=== PATIENT | female | born 1945 | race Caucasian/White ===

== ENCOUNTER 2018-01-10 12:20 | Inpatient (IN) | payer MEDICARE, MEDICAID ==
[~2018-01-10] VITALS: Ht 149.9 cm; Wt 52.6 kg
[2018-01-10] MEDS ORDERED: HYDR-3326 PO (12:47)
[2018-01-10] MEDS ORDERED: DOCU100C36 PO (12:47)
[2018-01-10] MEDS ORDERED: CALC-555 PO (12:47)
[2018-01-10] MEDS ORDERED: OLAN2.5T3 PO (12:47)
[2018-01-10] MEDS ORDERED: ACET-2154 PO (12:47)
[2018-01-10] MEDS ORDERED: MAGN400O6 PO (12:47)
[2018-01-10] MEDS ORDERED: MULT-213 PO (12:47)
[2018-01-10] MEDS ORDERED: ONDA4TAB5 PO (12:47)
[2018-01-10] MEDS ORDERED: MIRT15TA PO (12:47)
[2018-01-10] MEDS ORDERED: LORA-258 PO (12:47)
[2018-01-10] MEDS ORDERED: ATOR20TA PO (12:47)
[2018-01-10] MEDS ORDERED: POLY17PO4 PO (12:47)
[2018-01-10] MEDS ORDERED: MELA3TAB PO (12:47)
[2018-01-10] MEDS ORDERED: OLAN7.5T3 PO (12:47)
[2018-01-10] MEDS ORDERED: FERR325T28 PO (12:47)
[2018-01-10] MEDS ORDERED: CALC500T13 PO (12:47)
[2018-01-10] MEDS ORDERED: MAG355OR18 PO (12:47)
[2018-01-10 12:57] LABS: BASOPHILS # (AUTO) 0.1 K/uL (0.0-8.0); BASOPHILS % (AUTO) 0.9 % (0.0-2.0); EOSINOPHILS # (AUTO) 0.3 K/uL (0.0-0.7); ETHANOL < 3 MG/DL (0-0); HEMATOCRIT 37.9 % (31.2-41.9); HEMOGLOBIN 12.5 g/dL (10.9-14.3); LYMPHOCYTES # (AUTO) 1.3 K/uL (20.0-40.0); LYMPHOCYTES % (AUTO) 16.9 % (20.5-51.5); MEAN CORPUSCULAR HEMOGLOBIN 22.6 uug (24.7-32.8); MEAN CORPUSCULAR HGB CONC 33 g/dL (32.3-35.6); MEAN CORPUSCULAR VOLUME 68.9 fL (75.5-95.3); MONOCYTES # (AUTO) 0.5 K/uL (2.0-10.0); MONOCYTES % (AUTO) 6.3 % (0.0-11.0); NEUTROPHILS # (AUTO) 5.6 K/uL (1.8-8.9); NEUTROPHILS % (AUTO) 71.9 % (38.5-71.5); PLATELET COUNT (AUTO) 293 K/uL (179-408); WHITE BLOOD COUNT (AUTO) 7.8 K/uL (3.8-11.8)
[2018-01-10 12:58] LABS: ALANINE AMINOTRANSFERASE 27 U/L (14-59); ALKALINE PHOSPHATASE 89 U/L (50-136); ASPARTATE AMINOTRANSFERASE 21 U/L (15-37); BILIRUBIN,DIRECT 0.1 mg/dL (0.0-0.2); BILIRUBIN,TOTAL 0.3 mg/dL (0.2-1.0); CARBON DIOXIDE 29 mmol/L (21-32); CHLORIDE 106 mmol/L (98-107); CREATININE 1.2 mg/dL (0.6-1.3); GLUCOSE 106 mg/dL (74-106); POTASSIUM 4.3 mmol/L (3.5-5.1); TOTAL PROTEIN, SERUM 7.6 g/dL (6.4-8.2); UREA NITROGEN, BLOOD 19 mg/dL (7-18)
[2018-01-10 13:02] LABS: ACETAMINOPHEN < 2.0 ug/mL (10-30)
[2018-01-10 13:15] LABS: *BILIRUBIN,URIN NEGATIVE (NEGATIVE); *BLOOD, URINE NEGATIVE (NEGATIVE); *CLARITY,URINE CLEAR (CLEAR); *COLOR,URINE YELLOW (YELLOW); *KETONES,URINE NEGATIVE (NEGATIVE); *PROTEIN,URINE NEGATIVE (NEGATIVE); *UROBILINOGEN,URINE 0.2 E.U./dl (NORMAL); LEUKOCYTE ESTERASE ,URINE NEGATIVE (NEGATIVE); NITRITE, URINE NEGATIVE (NEGATIVE); UGLUCOSE NEGATIVE (NEGATIVE)
[2018-01-10 13:25] LABS: *AMPHETAMINE, URINE NEGATIVE (NEGATIVE); *BARBITURATE, URINE NEGATIVE (NEGATIVE); *CANNABINOID, URINE NEGATIVE (NEGATIVE); *COCCAINE, URINE NEGATIVE (NEGATIVE); *OPIATE, URINE NEGATIVE (NEGATIVE); *PHENCYCLIDINE SCREEN,URINE NEGATIVE (NEGATIVE)
[2018-01-10 13:28] LABS: BACTERIA,URINE NONE SEEN /HPF (NONE SEEN); MUCUS,URINE FEW /LPF (0-FEW); RBC,URINE NONE SEEN /HPF (0-3); SQUAMOUS EPITHELIAL CELL,UR FEW /HPF (NONE SEEN); WBC,URINE 0-3 /HPF (0-3)
[2018-01-10 13:37] LABS: EOSINOPHILS % (MANUAL) 2 % (0-8); LYMPHOCYTES % (MANUAL) 18 % (20-40); MONOCYTES % (MANUAL) 4 % (2-10); NEUTROPHILS % (MANUAL) 76 % (42-75)
--- NOTE | 2018-01-10 13:51 | NUR ---
Pt resting in gurney with no s/s of distress noted. Called Pinky for psych eval, eta 1 hr.
--- NOTE | 2018-01-10 14:43 | NUR ---
Pinky here for psych eval.
--- NOTE | 2018-01-10 14:49 | NUR ---
Pt placed on 5150 hold (GD) by Mirian.
--- NOTE | 2018-01-10 15:22 | NUR ---
Pt trans to MHU, NAD noted.
[2018-01-10] MEDS ORDERED: TEMAZEPAM 7.5 MG CAPSULE PO PRN (16:00)
[2018-01-10] MEDS ORDERED: ACETAMINOPHEN 325 MG TABLET PO PRN (16:00)
[2018-01-10] MEDS ORDERED: MAGNESIUM HYDROXIDE 30 ML LIQUID UDC PO PRN (16:00)
[2018-01-10] MEDS: OLANZAPINE 2.5 MG TABLET PO SCH (16:50)
--- NOTE | 2018-01-10 18:24 | NUR ---
1530: Admitted pt on 5150 for Gravely Disabled. Per hold, pt complain of hearing voices and paranoia. Upon assessment, pt stated "the voices manifest in my brain telling me that I am bad and I will go to hell". Denies SI and HI. A/O x3, admission orders noted and carried out. Contraband search done. Oriented to room and hospital policies and procedures. Family member notified of admission. skin assessment clear.
--- NOTE | 2018-01-10 19:30 | NUR ---
Received pt in bed, awake. No complaints of pain at this time. Will continue to monitor.
[2018-01-10] MEDS: MIRTAZAPINE 15 MG TABLET PO SCH (20:08)
[2018-01-10] MEDS: OLANZAPINE 5 MG TABLET PO SCH (20:08)
[2018-01-10] MEDS: MAG HYDROX/AL HYDROX/SIMETH 30 ML LIQUID UDC PO PRN (20:16)
[2018-01-10 20:19] VITALS: BP 127/76
--- NOTE | 2018-01-10 21:10 | NUR ---
Complains of stomach upset; requests for meds. Mylanta PRN administered per MD order.
--- NOTE | 2018-01-11 06:56 | NUR ---
Awake in bed, denies any pain or discomfort at this time. Manifests a pleasant disposition upon waking up. Frequent checks done to ensure safety.
[2018-01-11 07:30] VITALS: BP 148/84
[2018-01-11] MEDS: OLANZAPINE 2.5 MG TABLET PO SCH ×2 (08:01→16:27)
[2018-01-11] MEDS ORDERED: MAGNESIUM HYDROXIDE 30 ML LIQUID UDC PO PRN (10:00)
[2018-01-11] MEDS ORDERED: MAG HYDROX/AL HYDROX/SIMETH 30 ML LIQUID UDC PO PRN (10:00)
[2018-01-11] MEDS ORDERED: CALCIUM CARBONATE 500 MG TAB.CHEW PO PRN (10:00)
[2018-01-11] MEDS ORDERED: MIRALAX 17 GM POWD.PACK PO PRN (10:00)
[2018-01-11] MEDS ORDERED: ONDANSETRON HCL 4 MG TABLET PO PRN (10:00)
[2018-01-11] MEDS ORDERED: HYDROCODONE/APAP 5-325MG TABLET PO PRN (10:00)
[2018-01-11] MEDS ORDERED: ACETAMINOPHEN 325 MG TABLET PO PRN (10:00)
[2018-01-11] MEDS: DOCUSATE SODIUM 100 MG CAPSULE PO SCH (10:41)
[2018-01-11] MEDS: CALCIUM CARB/VITAMIN D 500MG-200UNITS TABLET PO SCH (11:03)
[2018-01-11] MEDS: FERROUS SULFATE 325 MG TABEC PO SCH (11:04)
[2018-01-11] MEDS: MULTIVITAMINS,THERAPEUTIC TABLET PO SCH (11:04)
[2018-01-11] MEDS: LORAZEPAM 0.5 MG TABLET PO PRN (12:16)
[2018-01-11 15:39] VITALS: BP 116/50
[2018-01-11] MEDS: MAG HYDROX/AL HYDROX/SIMETH 30 ML LIQUID UDC PO PRN (17:53)
--- NOTE | 2018-01-11 19:35 | NUR ---
GPS: Received pt on bed.Pt shows no signs of distress. Safety and comfort provided. Will continue to monitor.
--- NOTE | 2018-01-11 19:50 | NUR ---
NOTIFY DR. SUNSHINE REGARDING PT HAVE REDNESS UNDER HER RIGHT BREAST. NO NEW ORDERS FROM THE DR. HE SAID HE WILL LOOK AT IT TOMORROW WHEN HE MAKES HIS ROUND. WILL CONTINUE TO MONITOR.
[2018-01-11] MEDS: MIRTAZAPINE 15 MG TABLET PO SCH (20:17)
[2018-01-11] MEDS: ATORVASTATIN 20 MG TABLET PO SCH (20:17)
[2018-01-11 20:18] VITALS: BP 117/67
[2018-01-11] MEDS: OLANZAPINE 5 MG TABLET PO SCH (20:23)
--- NOTE | 2018-01-12 06:50 | NUR ---
GPS: PT SLEPT 8.30 HOURS. PT SHOWS NO SIGNS OF DISTRESS. PT CALM AT THIS TIME. SAFETY AND COMFORT PROVIDED.
[2018-01-12] MEDS: FERROUS SULFATE 325 MG TABEC PO SCH (08:59)
[2018-01-12] MEDS: CALCIUM CARB/VITAMIN D 500MG-200UNITS TABLET PO SCH (08:59)
[2018-01-12] MEDS: MULTIVITAMINS,THERAPEUTIC TABLET PO SCH (08:59)
[2018-01-12] MEDS: DOCUSATE SODIUM 100 MG CAPSULE PO SCH (08:59)
[2018-01-12] MEDS: OLANZAPINE 2.5 MG TABLET PO SCH ×2 (08:59→16:02)
[2018-01-12] MEDS: MAG HYDROX/AL HYDROX/SIMETH 30 ML LIQUID UDC PO PRN (13:19)
[2018-01-12 15:23] VITALS: BP 139/78
[2018-01-12] MEDS: LORAZEPAM 0.5 MG TABLET PO PRN (15:25)
[2018-01-12] MEDS: NYSTATIN CREAM 30 GM TUBE TOP SCH ×2 (18:30→20:41)
[2018-01-12 20:39] VITALS: BP 133/89
[2018-01-12] MEDS: OLANZAPINE 5 MG TABLET PO SCH (20:40)
[2018-01-12] MEDS: MIRTAZAPINE 15 MG TABLET PO SCH (20:40)
[2018-01-12] MEDS: ATORVASTATIN 20 MG TABLET PO SCH (20:41)
[2018-01-13] MEDS: LORAZEPAM 0.5 MG TABLET PO PRN ×2 (06:12→12:50)
[2018-01-13] MEDS: MULTIVITAMINS,THERAPEUTIC TABLET PO SCH (08:06)
[2018-01-13] MEDS: FERROUS SULFATE 325 MG TABEC PO SCH (08:06)
[2018-01-13] MEDS: DOCUSATE SODIUM 100 MG CAPSULE PO SCH (08:06)
[2018-01-13] MEDS: CALCIUM CARB/VITAMIN D 500MG-200UNITS TABLET PO SCH (08:06)
[2018-01-13] MEDS: OLANZAPINE 2.5 MG TABLET PO SCH ×2 (08:06→16:01)
[2018-01-13 08:31] VITALS: BP 123/85
[2018-01-13] MEDS: NYSTATIN CREAM 30 GM TUBE TOP SCH ×2 (11:08→20:45)
--- NOTE | 2018-01-13 12:42 | NUR ---
Initial DC Plan: Patient currently resides at [facility] [[address] [place] [address]; ]. SW will follow up with facility to confirm they can accept patient back at the facility. SW will follow up with MD, patient, and patient's sister Amrita [[phone]] to discuss most appropriate discharge plans. SW will form a safe and proper discharge.
[2018-01-13] MEDS: MAG HYDROX/AL HYDROX/SIMETH 30 ML LIQUID UDC PO PRN (14:23)
[2018-01-13 16:32] VITALS: BP 130/83
[2018-01-13 20:42] VITALS: BP 104/63
[2018-01-13] MEDS: ATORVASTATIN 20 MG TABLET PO SCH (20:44)
[2018-01-13] MEDS: MIRTAZAPINE 15 MG TABLET PO SCH (20:44)
[2018-01-13] MEDS: OLANZAPINE 5 MG TABLET PO SCH (20:45)
--- NOTE | 2018-01-14 00:09 | NUR ---
RECEIVED Pt IN BED, SLEEPING BUT EASILY AROUSED, A/O X 3, COOPERATIVE AND COMPLIANT WITH MEDS AND CARE STAFF. Pt IS WITHDRAWN AND ISOLATIVE, REFUSES TO GO OUTSIDE OF HER ROOM. Pt TOOK ALL MEDS AND ASKED FOR THE LIGHTS TO BE TURNED OFF AFTERWARDS SO SHE CAN GO BACK TO SLEEP. Pt DENIES S/I, AGREES TO CFS, DENIES PAIN AND NO DISTRESS NOTED. NO AGGRESSIVE BEHAVIORS NOTED. Pt IS NOW SLEEPING COMFORTABLY. WILL MONITOR CLOSELY THROUGHOUT SHIFT.
[2018-01-14 08:00] VITALS: BP 109/49
[2018-01-14] MEDS: DOCUSATE SODIUM 100 MG CAPSULE PO SCH (08:25)
[2018-01-14] MEDS: CALCIUM CARB/VITAMIN D 500MG-200UNITS TABLET PO SCH (08:25)
[2018-01-14] MEDS: OLANZAPINE 2.5 MG TABLET PO SCH ×2 (08:25→16:05)
[2018-01-14] MEDS: FERROUS SULFATE 325 MG TABEC PO SCH (08:25)
[2018-01-14] MEDS: MULTIVITAMINS,THERAPEUTIC TABLET PO SCH (08:25)
[2018-01-14] MEDS: NYSTATIN CREAM 30 GM TUBE TOP SCH ×2 (08:27→20:25)
--- NOTE | 2018-01-14 09:31 | NUR ---
Recived patient in bed. Able to express needs. Ate her breakfast, took all her medications and provided treatment under her breast. Patient decided to stay in her bed. after breakfast. Will monitor.
[2018-01-14] MEDS: LORAZEPAM 0.5 MG TABLET PO PRN (11:40)
[2018-01-14 16:00] VITALS: BP 91/50
--- NOTE | 2018-01-14 16:38 | NUR ---
Patient only stayed in bed and in her room. Requested her ativan and zyprexa. She wanted to talk to MD regarding going home. No sign of hallucinations and/or agitation noted. Wll monitor.
[2018-01-14] MEDS: ATORVASTATIN 20 MG TABLET PO SCH (20:23)
[2018-01-14] MEDS: MIRTAZAPINE 15 MG TABLET PO SCH (20:23)
[2018-01-14] MEDS: OLANZAPINE 5 MG TABLET PO SCH (20:25)
[2018-01-14] MEDS: MAG HYDROX/AL HYDROX/SIMETH 30 ML LIQUID UDC PO PRN (20:36)
[2018-01-14 21:00] VITALS: BP 104/57
--- NOTE | 2018-01-14 23:50 | NUR ---
RECEIVED Pt IN BED, AWAKE, A/O X 3, COOPERATIVE AND COMPLIANT WITH MEDS AND CARE STAFF. Pt CONTINUES TO BE WITHDRAWN AND ISOLATIVE, BUT MORE INTERACTIVE AND GOAL ORIENTED THAN THE PREVIOUS NIGHT. Pt WENT OUTSIDE OF ROOM AND WATCHED TV IN THE DAY ROOM. Pt COMPLAINED OF HER STOMACH BEING UPSET, REQUESTED AND GIVEN MYLANTA PO PRN. AFTER TAKING MED, Pt WENT TO BED AND IS NOW SLEEPING. NO AGGRESSIVE BEHAVIORS NOTED. DENIES PAIN, DENIES S/I, AGREES TO CFS.
--- NOTE | 2018-01-15 07:00 | NUR ---
Pt SLEPT WELL THROUGHOUT THE NIGHT, STILL SLEEPING WITH NO DISTRESS NOTED. IN STABLE CONDITION.
[2018-01-15 07:30] VITALS: BP 122/75
[2018-01-15] MEDS: FERROUS SULFATE 325 MG TABEC PO SCH (08:24)
[2018-01-15] MEDS: DOCUSATE SODIUM 100 MG CAPSULE PO SCH (08:24)
[2018-01-15] MEDS: OLANZAPINE 2.5 MG TABLET PO SCH ×2 (08:25→16:15)
[2018-01-15] MEDS: CALCIUM CARB/VITAMIN D 500MG-200UNITS TABLET PO SCH (08:25)
[2018-01-15] MEDS: MULTIVITAMINS,THERAPEUTIC TABLET PO SCH (08:25)
[2018-01-15] MEDS: NYSTATIN CREAM 30 GM TUBE TOP SCH ×2 (09:11→21:15)
--- NOTE | 2018-01-15 10:37 | NUR ---
DC Note: Patient had her probable cause hearing today and was released. Patient will be discharged to [facility] [ [address] [place] [address]; ] via ambulance. SHAWN spoke with Nhung at [facility] who confirmed they can accept patient today. Patient is aware and agreeable to discharge plans. SHAWN left a voicemail for patient's sister Amrita Childs [[phone]] with details of discharge plans. Patient will follow up with Dr. Clancy (Knife Blade Polisher) and Dr. Fernandez (Psychiatrist) at the facility.
[2018-01-15] MEDS: MAG HYDROX/AL HYDROX/SIMETH 30 ML LIQUID UDC PO PRN (11:18)
[2018-01-15] MEDS: LORAZEPAM 0.5 MG TABLET PO PRN ×3 (12:03→21:46)
--- NOTE | 2018-01-15 14:00 | NUR ---
Gps/Measurement Technician-Ambulance in to transport patient back to [facility], noted b/p 153/114 HR , 140 regular, checked apical was 146 and regular. Per patient ,she was feeling nervous about changing her room at the facility. Paged Dr Clancy , awaiting for return call. Ptient denies any discomfort, claimed she's just feeling anxious about her discharge.
--- NOTE | 2018-01-15 15:07 | NUR ---
Gps/Network Control Operators Supervisor- [facility]96 [facility] 127 , Ambulance unable to transport patient , will arrange for another transportations when v/s stables
--- NOTE | 2018-01-15 16:15 | NUR ---
Gps/Solution Advisor- No return call noted from Dr Clancy, B/P rechecked 139/84 HR 119 regular, 02 sat 95%. Ativan 0.5 mg 1 tab. given po for anxiety. Ciera Cuevas was called and talked to Annette(Nurse) notified of the recenet v/s and patient still insistent of wanting to go back to the facility today. Dr Fenrandez was in and seen and talked to patient was informed of the on going vital signs issues.Continue to monitor.
--- NOTE | 2018-01-15 17:15 | NUR ---
Gps/Freezer Unloader- Paged Dr Quiñones regarding patient's issues with tachycardia, denies any chest pain or any discomfort , latest b/p 139/84-HR 119 . Patient insistent she want to go back to the facility tonight.
[2018-01-15 17:30] VITALS: BP 139/84
[2018-01-15 18:30] VITALS: BP 151/93
--- NOTE | 2018-01-15 18:39 | NUR ---
Gps/Steel Pan Form Placing Supervisor- Dr Compa Quiñones returned call, orders received ,clonidine 0.2 mg 1 tab po one time dose.
[2018-01-15] MEDS ORDERED: CLONIDINE HCL 0.2 MG TABLET PO ONE (18:45)
--- NOTE | 2018-01-15 19:55 | NUR ---
RECEIVED PATIENT IN HER ROOM. SHE IS NOTED A/O X 3, ABLE TO AMBULATE WITH STEADY GAIT. SHE IS NOTED ANXIOUS D/T HER INCOMING DISCHARGED. SHE DENIES SI/AH/VH. GOOD INSIGHT NOTED. PATIENT WAS GIVEN CATAPRES 0.2MG ONE TIME ONLY FOR ELEVATED B/P AND HR )148 Addendum: 01/15/18 at 2215 by TERRANCE GRIGSBY RN (BP 148/81 AND HR 108.) SAFETY EMPHASIS. WILL CONTINUE TO MONITOR.
[2018-01-15 20:27] VITALS: BP 148/93
[2018-01-15] MEDS: ATORVASTATIN 20 MG TABLET PO SCH (20:50)
[2018-01-15] MEDS: MIRTAZAPINE 15 MG TABLET PO SCH (20:50)
--- NOTE | 2018-01-15 20:50 | NUR ---
RECHECKED B/P/HR: 116/75MMHG AND HR 108BPM. ALL QHS MEDICATION WERE GIVEN INCLUDING REMERON 15MG And ZYPREXA 15MG PO. AWAITING FOR AMBULANCE TO ARRIVED. WILL CONTINUE TO MONITOR.
[2018-01-15] MEDS: OLANZAPINE 5 MG TABLET PO SCH (20:51)
[2018-01-15 21:00] VITALS: BP 116/75
--- NOTE | 2018-01-15 21:50 | NUR ---
PATIENT NOTED ANXIOUS D/T HER INCOMING DISCHARGED TO [facility]. ATIVAN 0.5MG PO PRN WAS GIVEN. AWAITING FOR AMBULANCE TO ARRIVED.
[2018-01-15 22:05] VITALS: BP 113/71
--- NOTE | 2018-01-15 22:05 | NUR ---
PATIENT WAS DISCHARGED FROM [facility] TO [facility]. VIA AMBULANCE AND ACCOMPANIED BY THREE PARAMEDICS AT APPROX 2204. SHE WAS DISCHARGED WITH ALL HER BELONGINGS IN STABLE CONDITION. B/P 113/71MMHG AND PULSE 97BPM RESPIRATION 18 BREATHS PER MIN.
== END 2018-01-15 22:05 | DRG 885 ==
LOC: ER 12:20 → GPS 15:16
PROVIDERS: ADMIT Psychiatry & Neurology Psychiatry; ATTEND Nurse Practitioner Acute Care
DX: F25.9 Schizoaffective disorder, unspecified (principal); B35.1 Tinea unguium; E78.5 Hyperlipidemia, unspecified; M20.40 Other hammer toe(s) (acquired), unspecified foot; I73.9 Peripheral vascular disease, unspecified; R21 Rash and other nonspecific skin eruption; M81.0 Age-related osteoporosis without current pathological fracture; L57.0 Actinic keratosis; M21.611 Bunion of right foot; M21.612 Bunion of left foot; Z88.6 Allergy status to analgesic agent; Z88.0 Allergy status to penicillin; Z91.013 Allergy to seafood; Z91.5 Personal history of self-harm
CPT/HCPCS: 36415; 80307; 85025; 93005; A4663; G0480; G0480-TC

== ENCOUNTER 2018-06-03 17:21 | Inpatient (IN) | payer MEDICARE, MEDICAID ==
[~2018-06-03] VITALS: Ht 157.5 cm; Wt 47.6 kg
[~2018-06-03 17:21] MED LIST: ACET-2154 PO; ATOR20TA PO; CALC-555 PO; CALC500T13 PO; DOCU100C36 PO; FERR325T28 PO; HYDR-3326 PO; MAG355OR18 PO; MAGN400O6 PO; MULT-213 PO; ONDA4TAB5 PO; POLY17PO4 PO
[2018-06-03] MEDS ORDERED: CALC-555 PO (17:43)
[2018-06-03] MEDS ORDERED: POLY17PO4 PO (17:43)
[2018-06-03] MEDS ORDERED: FERR325T28 PO (17:43)
[2018-06-03] MEDS ORDERED: MULT1TAB73 PO (17:43)
[2018-06-03] MEDS ORDERED: CALC-494 PO (17:43)
[2018-06-03] MEDS ORDERED: MAG355OR18 PO (17:43)
[2018-06-03] MEDS ORDERED: OLAN10TA3 PO (17:43)
[2018-06-03] MEDS ORDERED: DOCU-141 PO (17:43)
[2018-06-03] MEDS ORDERED: LORA-258 PO (17:43)
[2018-06-03] MEDS ORDERED: ATOR20TA PO (17:43)
[2018-06-03] MEDS ORDERED: MELA3TAB PO (17:43)
[2018-06-03] MEDS ORDERED: ACET-2154 PO (17:43)
[2018-06-03] MEDS ORDERED: ALEN70TA3 PO (17:43)
[2018-06-03] MEDS ORDERED: MAGN400O6 PO (17:43)
--- NOTE | 2018-06-03 19:17 | NUR ---
HANDSOFF REPORT GIVEN TO GARRY GERMAIN.
--- NOTE | 2018-06-03 19:21 | NUR ---
RECEIVED SHIFT REPORT FROM JESSA GUILLEN. PT RECEIVED IN BED. PT DOES NOT APPEAR TO BE IN DISTRESS AT THIS TIME. XRAY AT BEDSIDE.
--- NOTE | 2018-06-03 19:32 | NUR ---
XRAY AND SPEECH WRITER AT BEDSIDE.
[2018-06-03 19:47] LABS: BASOPHILS % (AUTO) 0.3 % (0.0-2.0); EOSINOPHILS # (AUTO) 0.1 K/uL (0.0-0.7); EOSINOPHILS % (AUTO) 0.8 % (0.0-7.0); HEMATOCRIT 38.1 % (31.2-41.9); HEMOGLOBIN 12.3 g/dL (10.9-14.3); LYMPHOCYTES # (AUTO) 1.2 K/uL (20.0-40.0); MEAN CORPUSCULAR HEMOGLOBIN 22.6 uug (24.7-32.8); MEAN CORPUSCULAR HGB CONC 32 g/dL (32.3-35.6); MEAN CORPUSCULAR VOLUME 70.2 fL (75.5-95.3); MONOCYTES # (AUTO) 0.8 K/uL (2.0-10.0); NEUTROPHILS # (AUTO) 8.7 K/uL (1.8-8.9); NEUTROPHILS % (AUTO) 80.9 % (38.5-71.5); PLATELET COUNT (AUTO) 311 K/uL (179-408); RED BLOOD CELL COUNT(AUTO) 5.43 MIL/uL (3.63-4.92); WHITE BLOOD COUNT (AUTO) 10.8 K/uL (3.8-11.8)
[2018-06-03 19:58] LABS: CARBON DIOXIDE 22 mmol/L (21-32); CHLORIDE 108 mmol/L (98-107); CREATININE 0.8 mg/dL (0.6-1.3); GLUCOSE 123 mg/dL (74-106); POTASSIUM 3.5 mmol/L (3.5-5.1); UREA NITROGEN, BLOOD 27 mg/dL (7-18)
[2018-06-03 20:03] LABS: ACETAMINOPHEN < 2.0 ug/mL (10-30); ALANINE AMINOTRANSFERASE 41 U/L (14-59); ALKALINE PHOSPHATASE 97 U/L (50-136); ASPARTATE AMINOTRANSFERASE 57 U/L (15-37); BILIRUBIN,DIRECT 0.2 mg/dL (0.0-0.2); BILIRUBIN,TOTAL 0.7 mg/dL (0.2-1.0); TOTAL PROTEIN, SERUM 7.6 g/dL (6.4-8.2)
[2018-06-03 20:05] LABS: ETHANOL < 3 MG/DL (0-0)
--- NOTE | 2018-06-03 20:27 | NUR ---
GAVE REPORT TO JESSA MCDANIELS, IN U.
[2018-06-03 20:37] LABS: THYROID STIMULATING HORMONE 2.594 mIU/mL (0.358-3.740)
--- NOTE | 2018-06-03 20:43 | NUR ---
Pt. admitted to U 137A, under care of Dr. LOPEZ/LIZETH. Belongs List completed.
--- NOTE | 2018-06-03 21:00 | NUR ---
GPS: Admitted 72 year old female from ER via [facility] to [facility],under draío Bartlett and kendra for 5150/gd .patient placed on 72 hrs hold. patient is a/o x2 to name and place. ambulate with fww and with 1 person assistance. patient cooperative with nursing care. assisted with adl's. instructed to call nurse for assistance.continue monitoring for safety.
[2018-06-03] MEDS ORDERED: ACETAMINOPHEN 325 MG TABLET PO PRN (21:15)
[2018-06-03] MEDS ORDERED: MAGNESIUM HYDROXIDE 30 ML LIQUID UDC PO PRN (21:15)
[2018-06-03] MEDS ORDERED: TEMAZEPAM 7.5 MG CAPSULE PO PRN (21:15)
[2018-06-03] MEDS ORDERED: MAG HYDROX/AL HYDROX/SIMETH 30 ML LIQUID UDC PO PRN (21:15)
[2018-06-03 23:09] VITALS: BP 110/77
--- NOTE | 2018-06-04 06:24 | NUR ---
GPS: Remain calm and cooperative.ambulate with fww and 1 person assistance. continent of b+b. no behavior problem noted slept 7 hrs through the night. continue monitoring for safety.
[2018-06-04 07:25] LABS: IRON, SERUM 74 ug/dL (50-175)
[2018-06-04 07:30] VITALS: BP 92/48
[2018-06-04 07:30] LABS: ALANINE AMINOTRANSFERASE 34 U/L (14-59); ALKALINE PHOSPHATASE 83 U/L (50-136); ASPARTATE AMINOTRANSFERASE 46 U/L (15-37); BILIRUBIN,TOTAL 0.7 mg/dL (0.2-1.0); CARBON DIOXIDE 21 mmol/L (21-32); CHLORIDE 108 mmol/L (98-107); CREATININE 0.9 mg/dL (0.6-1.3); GLUCOSE 102 mg/dL (74-106); POTASSIUM 3.5 mmol/L (3.5-5.1); TOTAL PROTEIN, SERUM 6.7 g/dL (6.4-8.2); UREA NITROGEN, BLOOD 26 mg/dL (7-18)
[2018-06-04 08:38] LABS: CHOLESTEROL 159 mg/dL (<200); TRIGLYCERIDES 90 MG/DL (30-150)
[2018-06-04 08:39] LABS: HDL CHOLESTEROL 64 mg/dL (40-60)
--- NOTE | 2018-06-04 12:00 | NUR ---
NOTIFIFED DAHLIA STANLEY NP THAT MEDS NEED TO BE RECONCILED.
--- NOTE | 2018-06-04 12:38 | NUR ---
Initial Discharge Note: Patient currently lives at [facility] [[address] [place] [address]; ]. Patient states she likes the facility and would like to return there when ready. Patient DPALEXIS and sister, Amrita Childs [[phone]] also likes [facility] and is in agreement for patient to return to facility when ready. asbestos removal worker has reached out to facility legal coordinator, Sallie, to ensure patient is welcomed back when ready and is awaiting response. asbestos removal worker will continue to support patient and family during admission and provide a safe and proper discharge.
[2018-06-04 16:00] VITALS: BP 93/46
--- NOTE | 2018-06-04 16:00 | NUR ---
[facility] Note: SHAWN placed call to [facility] . Spoke with Diomedes in Medical Records who reports she will fax over the [facility] paperwork to this junior technical writer's fax ([phone]). When it arrives, paperwork will be placed in the chart. SHAWN will continue to follow-up.
[2018-06-04] MEDS: OLANZAPINE 5 MG TABLET PO SCH (17:34)
[2018-06-04] MEDS: LORAZEPAM 0.5 MG TABLET PO PRN (18:57)
[2018-06-04 19:00] VITALS: BP 109/73
[2018-06-04 19:58] VITALS: BP 102/62
[2018-06-05 07:30] VITALS: BP 102/60
[2018-06-05] MEDS: LORAZEPAM 0.5 MG TABLET PO PRN ×2 (09:19→16:44)
[2018-06-05] MEDS: OLANZAPINE 5 MG TABLET PO SCH ×2 (09:20→16:44)
[2018-06-05] MEDS ORDERED: MAG HYDROX/AL HYDROX/SIMETH 30 ML LIQUID UDC PO SCH (12:45)
[2018-06-05] MEDS ORDERED: ACETAMINOPHEN 325 MG TABLET PO PRN (12:45)
[2018-06-05] MEDS ORDERED: MAGNESIUM HYDROXIDE 30 ML LIQUID UDC PO PRN (12:45)
[2018-06-05] MEDS ORDERED: MIRALAX 17 GM POWD.PACK PO PRN (12:45)
[2018-06-05 15:14] VITALS: BP 101/67
[2018-06-05] MEDS: DOCUSATE SODIUM 100 MG CAPSULE PO SCH (16:44)
--- NOTE | 2018-06-05 17:41 | NUR ---
PATIENT HAS BEEN IN HER ROOM ALL SHIFT EXCEPT TO ASK FOE ATIVAN AND THEN RETURNS TO ROOM TO SLEEP. STILL VERY DEPRESSED WITH LIMITED SELF DISCLOUSURE TO THIS STAFF , CONTINUE TO PROVIDE A SAFE ENVIRONMENT
[2018-06-05 19:30] VITALS: BP 118/70
--- NOTE | 2018-06-05 20:00 | NUR ---
RECEIVED PATIENT IN HER ROOM IN BED, SHE IS NOTED AWAKE A/O X2. SHE IS ABLE TO AMBULATE WITH THE AID OF A FWW. AND SHE IS ABLE TO MAKE HER NEEDS KNOWN. PATIENT IS NOTED WITHDRAWN, LOW MOOD, BLUNTED AFFECT, SHE ISOLATE HERSELF IN HER ROOM. SHE DENIES SI BUT STATED HAVING AH, SHE HEARS VOICES AND THE VOICES SAYS THAT "YOU ARE BEING PUNISHED, YOU ARE BEING PUNISHED". SHE ALSO DENIES VH. PATIENT WAS REASSURED AND REDIRECTED. SAFETY WAS EMPHASIS. WILL CONTINUE TO MONITOR CLOSELY.
[2018-06-05] MEDS: ATORVASTATIN 20 MG TABLET PO SCH (20:31)
[2018-06-06 07:30] VITALS: BP 114/51
[2018-06-06] MEDS: DOCUSATE SODIUM 100 MG CAPSULE PO SCH ×2 (08:29→16:34)
[2018-06-06] MEDS: CALCIUM CARB/VITAMIN D 500MG-200UNITS TABLET PO SCH (08:29)
[2018-06-06] MEDS: OLANZAPINE 5 MG TABLET PO SCH ×2 (08:29→16:34)
[2018-06-06] MEDS: FERROUS SULFATE 325 MG TABEC PO SCH (08:29)
[2018-06-06] MEDS: MULTIVITAMINS,THERAPEUTIC TABLET PO SCH (08:29)
[2018-06-06] MEDS: LORAZEPAM 0.5 MG TABLET PO PRN ×2 (08:34→16:39)
[2018-06-06] MEDS ORDERED: Medication Not On Formulary EA (Multivitamins (Multivitamin) 1 EACH) PO SCH (09:00)
[2018-06-06 16:00] VITALS: BP 96/51
[2018-06-06] MEDS: ATORVASTATIN 20 MG TABLET PO SCH (20:19)
[2018-06-06 20:20] VITALS: BP 100/51
--- NOTE | 2018-06-07 06:30 | NUR ---
GPS: Remain calm and cooperative.ambulate with fww . continent of b+b. slept 9.5 hrs through the night. continue monitoring for safety. no agitation noted through the night.
[2018-06-07 07:30] VITALS: BP 118/69
[2018-06-07] MEDS: DOCUSATE SODIUM 100 MG CAPSULE PO SCH ×2 (08:52→17:35)
[2018-06-07] MEDS: OLANZAPINE 5 MG TABLET PO SCH ×2 (08:52→17:36)
[2018-06-07] MEDS: MULTIVITAMINS,THERAPEUTIC TABLET PO SCH (08:52)
[2018-06-07] MEDS: FERROUS SULFATE 325 MG TABEC PO SCH (08:52)
[2018-06-07] MEDS: CALCIUM CARB/VITAMIN D 500MG-200UNITS TABLET PO SCH (08:53)
[2018-06-07 15:10] VITALS: BP 107/63
--- NOTE | 2018-06-07 15:15 | NUR ---
Firearms Report: assembly worker completed and submitted [employer] Report for 5250 GD certification.
[2018-06-07 16:18] LABS: *BILIRUBIN,URIN NEGATIVE (NEGATIVE); *BLOOD, URINE NEGATIVE (NEGATIVE); *CLARITY,URINE CLEAR (CLEAR); *COLOR,URINE YELLOW (YELLOW); *KETONES,URINE NEGATIVE (NEGATIVE); *PROTEIN,URINE NEGATIVE (NEGATIVE); *UROBILINOGEN,URINE 0.2 E.U./dl (NORMAL); LEUKOCYTE ESTERASE ,URINE NEGATIVE (NEGATIVE); NITRITE, URINE NEGATIVE (NEGATIVE); PH,URINE 5.5 (5.0-8.0); UGLUCOSE NEGATIVE (NEGATIVE)
[2018-06-07 16:22] LABS: BACTERIA,URINE NONE SEEN /HPF (NONE SEEN); RBC,URINE 0-3 /HPF (0-3); SQUAMOUS EPITHELIAL CELL,UR FEW /HPF (NONE SEEN); WBC,URINE 0-3 /HPF (0-3)
[2018-06-07 20:00] VITALS: BP 111/64
[2018-06-07] MEDS: ATORVASTATIN 20 MG TABLET PO SCH (20:11)
[2018-06-08 07:30] VITALS: BP 139/79
[2018-06-08] MEDS: OLANZAPINE 5 MG TABLET PO SCH ×2 (08:58→17:36)
[2018-06-08] MEDS: FERROUS SULFATE 325 MG TABEC PO SCH (08:59)
[2018-06-08] MEDS: DOCUSATE SODIUM 100 MG CAPSULE PO SCH ×2 (08:59→17:36)
[2018-06-08] MEDS: MULTIVITAMINS,THERAPEUTIC TABLET PO SCH (08:59)
[2018-06-08] MEDS: CALCIUM CARB/VITAMIN D 500MG-200UNITS TABLET PO SCH (08:59)
[2018-06-08 15:42] VITALS: BP 103/56
[2018-06-08 19:30] VITALS: BP 101/60
[2018-06-08] MEDS: ATORVASTATIN 20 MG TABLET PO SCH (21:32)
[2018-06-09 07:31] LABS: BASOPHILS # (AUTO) 0.1 K/uL (0.0-8.0); EOSINOPHILS # (AUTO) 1.3 K/uL (0.0-0.7); EOSINOPHILS % (AUTO) 14.6 % (0.0-7.0); HEMATOCRIT 39.5 % (31.2-41.9); HEMOGLOBIN 12.7 g/dL (10.9-14.3); LYMPHOCYTES # (AUTO) 1.5 K/uL (20.0-40.0); LYMPHOCYTES % (AUTO) 16.5 % (20.5-51.5); MEAN CORPUSCULAR HEMOGLOBIN 22.4 uug (24.7-32.8); MEAN CORPUSCULAR HGB CONC 32 g/dL (32.3-35.6); MEAN CORPUSCULAR VOLUME 69.6 fL (75.5-95.3); MONOCYTES # (AUTO) 0.5 K/uL (2.0-10.0); MONOCYTES % (AUTO) 5.3 % (0.0-11.0); NEUTROPHILS # (AUTO) 5.5 K/uL (1.8-8.9); NEUTROPHILS % (AUTO) 62.6 % (38.5-71.5); PLATELET COUNT (AUTO) 291 K/uL (179-408); RED BLOOD CELL COUNT(AUTO) 5.68 MIL/uL (3.63-4.92); WHITE BLOOD COUNT (AUTO) 8.8 K/uL (3.8-11.8)
[2018-06-09 07:42] LABS: CARBON DIOXIDE 27 mmol/L (21-32); CHLORIDE 107 mmol/L (98-107); CREATININE 0.8 mg/dL (0.6-1.3); GLUCOSE 119 mg/dL (74-106); MAGNESIUM 2.3 mg/dL (1.8-2.4); PHOSPHOROUS 3.3 mg/dL (2.5-4.9); POTASSIUM 4.3 mmol/L (3.5-5.1); UREA NITROGEN, BLOOD 15 mg/dL (7-18)
[2018-06-09 08:30] VITALS: BP 119/87
[2018-06-09] MEDS: OLANZAPINE 5 MG TABLET PO SCH ×2 (09:29→17:39)
[2018-06-09] MEDS: MULTIVITAMINS,THERAPEUTIC TABLET PO SCH (09:29)
[2018-06-09] MEDS: FERROUS SULFATE 325 MG TABEC PO SCH (09:29)
[2018-06-09] MEDS: DOCUSATE SODIUM 100 MG CAPSULE PO SCH ×2 (09:29→17:39)
[2018-06-09] MEDS: CALCIUM CARB/VITAMIN D 500MG-200UNITS TABLET PO SCH (09:29)
[2018-06-09 16:22] VITALS: BP 96/62
--- NOTE | 2018-06-09 18:41 | NUR ---
patient remains isolative in room with no self disclousure , pleasant on approach still with blank staring continue to monitor for safety
[2018-06-09 19:45] VITALS: BP 146/91
[2018-06-09] MEDS: ATORVASTATIN 20 MG TABLET PO SCH (20:01)
[2018-06-09 20:20] VITALS: BP 147/87
[2018-06-09] MEDS: LORAZEPAM 0.5 MG TABLET PO PRN (20:22)
[2018-06-10 07:30] VITALS: BP 115/73
[2018-06-10] MEDS: CALCIUM CARB/VITAMIN D 500MG-200UNITS TABLET PO SCH (09:40)
[2018-06-10] MEDS: MULTIVITAMINS,THERAPEUTIC TABLET PO SCH (09:40)
[2018-06-10] MEDS: DOCUSATE SODIUM 100 MG CAPSULE PO SCH ×2 (09:40→17:03)
[2018-06-10] MEDS: OLANZAPINE 5 MG TABLET PO SCH ×2 (09:40→17:04)
[2018-06-10] MEDS: FERROUS SULFATE 325 MG TABEC PO SCH (09:40)
[2018-06-10 16:22] VITALS: BP 124/79
[2018-06-10 19:30] VITALS: BP 104/50
[2018-06-10] MEDS: ATORVASTATIN 20 MG TABLET PO SCH (20:04)
[2018-06-11] MEDS ORDERED: ALENDRONATE SODIUM 70 MG TABLET PO SCH (06:00)
[2018-06-11 07:30] VITALS: BP 116/82
[2018-06-11] MEDS: OLANZAPINE 5 MG TABLET PO SCH (08:23)
[2018-06-11] MEDS: MULTIVITAMINS,THERAPEUTIC TABLET PO SCH (08:23)
[2018-06-11] MEDS: CALCIUM CARB/VITAMIN D 500MG-200UNITS TABLET PO SCH (08:23)
[2018-06-11] MEDS: DOCUSATE SODIUM 100 MG CAPSULE PO SCH (08:23)
[2018-06-11] MEDS: FERROUS SULFATE 325 MG TABEC PO SCH (08:23)
--- NOTE | 2018-06-11 11:45 | NUR ---
Discharge Note: Patient will be discharged back to [facility] [[address] [facility], [place], [place] [address]: ] and transportation will be provided by ambulance. Please arrange ambulance transportation for this patient. fly worker spoke with Sallie, executive coordinator, at facility who states they are ready to accept the patient back today. Patient is aware and agreeable with discharge plans and is AxOx3. fly worker called and spoke with patients sister, Amrita [[phone]], who is aware and agreeable with discharge plan. Patient will follow-up with Dr. Fernandez (psychiatrist) and Dr. Gray (decatizer). Patient was provided with outpatient mental health referrals for [facility] Crisis Line ( ), Yancy Springer ( ), and National Suicide Prevention Lifeline ( ).
--- NOTE | 2018-06-11 12:00 | NUR ---
Gps/Retail Merchandising Specialist- Discharge planning in progress, patient anxious to go back to [facility].
--- NOTE | 2018-06-11 12:47 | NUR ---
Gps/Thread Milling Machine Set Up Operator- Called Ciera Cuevas, report given to Irene Glynn. All belongings given back to patient. Discharged via ambulance, in good spirit, no complaints noted.
== END 2018-06-11 12:50 | DRG 885 ==
LOC: ER 17:25 → GPS 20:35
PROVIDERS: ADMIT Psychiatry & Neurology Psychiatry; ATTEND Nurse Practitioner Acute Care
DX: F25.9 Schizoaffective disorder, unspecified (principal); E43 Unspecified severe protein-calorie malnutrition; Z68.1 Body mass index [BMI] 19.9 or less, adult; Z66 Do not resuscitate; M81.0 Age-related osteoporosis without current pathological fracture; D63.8 Anemia in other chronic diseases classified elsewhere; K64.4 Residual hemorrhoidal skin tags; K44.9 Diaphragmatic hernia without obstruction or gangrene; F41.9 Anxiety disorder, unspecified; E78.5 Hyperlipidemia, unspecified; K29.70 Gastritis, unspecified, without bleeding; E83.51 Hypocalcemia; G31.84 Mild cognitive impairment of uncertain or unknown etiology; R73.03 Prediabetes; E67.8 Other specified hyperalimentation; J43.9 Emphysema, unspecified; Z79.83 Long term (current) use of bisphosphonates; F32.9 Major depressive disorder, single episode, unspecified
CPT/HCPCS: 36415; 70030-TC; 71045; 72170; 83550; 83605; 83735; 84100; 84443; 85025; 85730; 87040; 87086; 93005; A4663; G0480; G0480-TC; J8499

== ENCOUNTER 2018-08-12 15:38 | Inpatient (IN) | payer MEDICARE, MEDICAID ==
[~2018-08-12] VITALS: Ht 152.4 cm; Wt 46.3 kg
[~2018-08-12 15:38] MED LIST changes: +ALEN70TA3 PO; -CALC500T13 PO; +DOCU-141 PO; -DOCU100C36 PO; -HYDR-3326 PO; -MULT-213 PO; +MULT1TAB73 PO; -ONDA4TAB5 PO
[2018-08-12 16:12] LABS: BASOPHILS % (AUTO) 0.4 % (0.0-2.0); HEMATOCRIT 36.9 % (31.2-41.9); HEMOGLOBIN 11.8 g/dL (10.9-14.3); LYMPHOCYTES # (AUTO) 0.9 K/uL (20.0-40.0); LYMPHOCYTES % (AUTO) 7.1 % (20.5-51.5); MEAN CORPUSCULAR HGB CONC 32 g/dL (32.3-35.6); MEAN CORPUSCULAR VOLUME 68.7 fL (75.5-95.3); MONOCYTES # (AUTO) 0.6 K/uL (2.0-10.0); MONOCYTES % (AUTO) 4.2 % (0.0-11.0); NEUTROPHILS # (AUTO) 11.6 K/uL (1.8-8.9); NEUTROPHILS % (AUTO) 88.3 % (38.5-71.5); PLATELET COUNT (AUTO) 288 K/uL (179-408); RED BLOOD CELL COUNT(AUTO) 5.37 MIL/uL (3.63-4.92); WHITE BLOOD COUNT (AUTO) 13.2 K/uL (3.8-11.8)
[2018-08-12] MEDS ORDERED: LORA0.5T PO (16:19)
[2018-08-12] MEDS ORDERED: OLAN10TA3 PO (16:19)
[2018-08-12] MEDS ORDERED: TEMA15CA PO (16:19)
[2018-08-12 16:23] LABS: ETHANOL < 3 MG/DL (0-0)
[2018-08-12 16:24] LABS: ALANINE AMINOTRANSFERASE 94 U/L (14-59); ALKALINE PHOSPHATASE 94 U/L (50-136); ASPARTATE AMINOTRANSFERASE 175 U/L (15-37); BILIRUBIN,DIRECT 0.2 mg/dL (0.0-0.2); BILIRUBIN,TOTAL 0.8 mg/dL (0.2-1.0); CARBON DIOXIDE 23 mmol/L (21-32); CHLORIDE 105 mmol/L (98-107); CREATININE 1.1 mg/dL (0.6-1.3); GLUCOSE 127 mg/dL (74-106); POTASSIUM 4.1 mmol/L (3.5-5.1); TOTAL PROTEIN, SERUM 7.6 g/dL (6.4-8.2); UREA NITROGEN, BLOOD 30 mg/dL (7-18)
[2018-08-12 16:25] LABS: ACETAMINOPHEN < 2.0 ug/mL (10-30)
[2018-08-12 16:29] LABS: BAND % (MANUAL) 3 % (0-10); LYMPHOCYTES % (MANUAL) 8 % (20-40); MONOCYTES % (MANUAL) 3 % (2-10); NEUTROPHILS % (MANUAL) 86 % (42-75)
[2018-08-12 18:52] VITALS: BP 124/85
[2018-08-12] MEDS ORDERED: MAG HYDROX/AL HYDROX/SIMETH 30 ML LIQUID UDC PO PRN ×3 (20:00→22:08)
[2018-08-12] MEDS ORDERED: LORAZEPAM 0.5 MG TABLET PO PRN (20:00)
[2018-08-12] MEDS ORDERED: MAGNESIUM HYDROXIDE 30 ML LIQUID UDC PO PRN ×2 (20:00→20:45)
[2018-08-12] MEDS ORDERED: ACETAMINOPHEN 325 MG TABLET PO PRN ×2 (20:00→20:45)
[2018-08-12] MEDS ORDERED: TEMAZEPAM 7.5 MG CAPSULE PO PRN (20:00)
[2018-08-12 20:33] VITALS: BP 157/89
[2018-08-12] MEDS ORDERED: MIRALAX 17 GM POWD.PACK PO PRN (20:45)
[2018-08-12] MEDS ORDERED: ATORVASTATIN 20 MG TABLET PO SCH (21:00)
[2018-08-12 22:06] LABS: *BILIRUBIN,URIN 1+ (NEGATIVE); *BLOOD, URINE 1+ (NEGATIVE); *COLOR,URINE YELLOW (YELLOW); *KETONES,URINE 3+ (NEGATIVE); *PROTEIN,URINE TRACE (NEGATIVE); *UROBILINOGEN,URINE 0.2 E.U./dl (NORMAL); LEUKOCYTE ESTERASE ,URINE 1+ (NEGATIVE); NITRITE, URINE NEGATIVE (NEGATIVE); UGLUCOSE NEGATIVE (NEGATIVE)
[2018-08-12 22:11] LABS: *CLARITY,URINE SLIGHTLY CLOUDY (CLEAR)
[2018-08-12 22:13] LABS: BACTERIA,URINE FEW /HPF (NONE SEEN); MUCUS,URINE MANY /LPF (0-FEW); SQUAMOUS EPITHELIAL CELL,UR MODERATE /HPF (NONE SEEN); WBC,URINE 50-80 /HPF (0-3)
[2018-08-12 22:28] LABS: *AMPHETAMINE, URINE NEGATIVE (NEGATIVE); *BARBITURATE, URINE NEGATIVE (NEGATIVE); *CANNABINOID, URINE NEGATIVE (NEGATIVE); *COCCAINE, URINE NEGATIVE (NEGATIVE); *OPIATE, URINE NEGATIVE (NEGATIVE); *PHENCYCLIDINE SCREEN,URINE NEGATIVE (NEGATIVE)
[2018-08-13 07:30] VITALS: BP 134/76
[2018-08-13] MEDS ORDERED: ALENDRONATE SODIUM 70 MG TABLET PO SCH (07:30)
[2018-08-13] MEDS ORDERED: CALCIUM CARB/VITAMIN D 500MG-200UNITS TABLET PO SCH (09:00)
[2018-08-13] MEDS ORDERED: FERROUS SULFATE 325 MG TABEC PO SCH (09:00)
[2018-08-13] MEDS ORDERED: MULTIVITAMINS,THERAPEUTIC TABLET PO SCH (09:00)
[2018-08-13] MEDS ORDERED: DOCUSATE SODIUM 100 MG CAPSULE PO SCH (09:00)
[2018-08-13] MEDS ORDERED: OLANZAPINE 5 MG TABLET PO SCH (09:45)
[2018-08-16] MEDS ORDERED: BENZ0.5T43 PO (10:55)
[2018-08-16] MEDS ORDERED: risperiDONE-M PO (10:55)
[2018-08-16] MEDS ORDERED: CEFT1FRO2 IV (10:55)
== END 2018-08-13 14:30 | disposition short-term general hospital (02) | DRG 885 ==
LOC: ER 15:38 → GPS 18:35
PROVIDERS: ADMIT Psychiatry & Neurology Psychiatry
DX: F25.9 Schizoaffective disorder, unspecified (principal); A41.9 Sepsis, unspecified organism; N39.0 Urinary tract infection, site not specified; K44.9 Diaphragmatic hernia without obstruction or gangrene; D64.9 Anemia, unspecified; F32.9 Major depressive disorder, single episode, unspecified; F41.9 Anxiety disorder, unspecified; Z79.83 Long term (current) use of bisphosphonates; Z79.899 Other long term (current) drug therapy; Z88.0 Allergy status to penicillin; Z88.6 Allergy status to analgesic agent; Z91.013 Allergy to seafood
CPT/HCPCS: 36415; 71045; 80307; 85025; 87086; 93005; A4663; G0480; G0480-TC; J8499

== ENCOUNTER 2018-08-13 14:58 | Inpatient (IN) | payer MEDICARE, MEDICAID ==
[~2018-08-13] VITALS: Ht 152.4 cm; Wt 46.3 kg
[2018-08-13] MEDS ORDERED: Z GUARD REMEDY PASTE 57 GM TUBE TOP PRN (15:15)
[2018-08-13 16:00] VITALS: BP 145/91
[2018-08-13] MEDS: CEFTRIAXONE 1 G in IV DEXTROSE 5% 50 ML IV SCH (16:15)
[2018-08-13] MEDS: IV NS 1000 ML 1,000 ML IV PRN (17:12)
[2018-08-13] MEDS: DOCUSATE SODIUM 100 MG CAPSULE PO SCH (17:12)
[2018-08-13] MEDS: TOBRAMYCIN 0.3% OPHT DROP 5 ML BOTTLE RIGHTEYE SCH ×2 (17:13→21:33)
--- NOTE | 2018-08-13 19:00 | NUR ---
Received patient lying on bed alert oriented . Able to make needs known . No sob no distress noted .Afebrile No pain discomfort noted at this time . Call lights and other belongings within reach at all times. All needs met and attended .
[2018-08-13 19:46] VITALS: BP 115/76
[2018-08-13] MEDS ORDERED: LORAZEPAM 0.5 MG TABLET PO PRN (20:30)
[2018-08-13] MEDS ORDERED: TEMAZEPAM 7.5 MG CAPSULE PO PRN (20:30)
[2018-08-13] MEDS: OLANZAPINE 5 MG TABLET PO SCH (21:33)
[2018-08-13] MEDS: ATORVASTATIN 20 MG TABLET PO SCH (21:33)
--- NOTE | 2018-08-13 21:34 | NUR ---
PATIENT EXPRESSED THAT SHE'S HAVING ANXIETY ATTACK, PATIENT NOTED ANXIOUS, UNEASY. PATIENT REQUESTED MEDICATION FOR ANXIETY. MEDICATED PATIENT ORDERED. WILL CONT TO MONITOR.
[2018-08-14] VITALS: BP 90/53
--- NOTE | 2018-08-14 | NUR ---
PATIENT ASLEEP RESTING, NO FURTHER EPISODE OF ANXIETY, CONT 1;1 SITTER FOR SAFETY. KEPT CLEAN AND DRY. CONT TO MONITOR.
[2018-08-14] MEDS: TOBRAMYCIN 0.3% OPHT DROP 5 ML BOTTLE RIGHTEYE SCH ×6 (03:58→20:11)
[2018-08-14] MEDS: ACETAMINOPHEN 325 MG TABLET PO PRN (04:42)
[2018-08-14 05:23] VITALS: BP_SYST 90; BP_SYST 97; BP_DIAS 53; BP_DIAS 54
[2018-08-14] MEDS: IV NS 1000 ML 1,000 ML IV PRN ×2 (05:32→22:35)
[2018-08-14 06:02] LABS: BASOPHILS # (AUTO) 0.1 K/uL (0.0-8.0); BASOPHILS % (AUTO) 0.9 % (0.0-2.0); EOSINOPHILS # (AUTO) 0.1 K/uL (0.0-0.7); EOSINOPHILS % (AUTO) 1.7 % (0.0-7.0); HEMATOCRIT 29.6 % (31.2-41.9); HEMOGLOBIN 9.7 g/dL (10.9-14.3); LYMPHOCYTES # (AUTO) 1.6 K/uL (20.0-40.0); LYMPHOCYTES % (AUTO) 23.2 % (20.5-51.5); MEAN CORPUSCULAR HEMOGLOBIN 22.1 uug (24.7-32.8); MEAN CORPUSCULAR HGB CONC 33 g/dL (32.3-35.6); MEAN CORPUSCULAR VOLUME 67.5 fL (75.5-95.3); MONOCYTES # (AUTO) 0.7 K/uL (2.0-10.0); MONOCYTES % (AUTO) 9.4 % (0.0-11.0); NEUTROPHILS # (AUTO) 4.5 K/uL (1.8-8.9); NEUTROPHILS % (AUTO) 64.8 % (38.5-71.5); PLATELET COUNT (AUTO) 202 K/uL (179-408); RED BLOOD CELL COUNT(AUTO) 4.38 MIL/uL (3.63-4.92); WHITE BLOOD COUNT (AUTO) 6.9 K/uL (3.8-11.8)
[2018-08-14 06:14] LABS: CARBON DIOXIDE 25 mmol/L (21-32); CHLORIDE 107 mmol/L (98-107); CREATININE 0.8 mg/dL (0.6-1.3); GLUCOSE 99 mg/dL (74-106); MAGNESIUM 2.1 mg/dL (1.8-2.4); PHOSPHOROUS 2.1 mg/dL (2.5-4.9); POTASSIUM 3.4 mmol/L (3.5-5.1); UREA NITROGEN, BLOOD 21 mg/dL (7-18)
--- NOTE | 2018-08-14 07:15 | NUR ---
RECEIVED REPORT FROM LOCK SETTER NURSE, PATIENT IN BED AWAKE, NO DISTRESS NOTED AT THIS TIME,BED IN LOW POSITION, SIDE RAILS UP X2. SITTER AT BEDSIDE.
--- NOTE | 2018-08-14 07:38 | NUR ---
PATIENT SLEPT FOR 8 HRS, CONT ON 1;1 SITTER FOR SAFETY, CONT ON PAIN MANAGEMENT, AFEBRILE, CONT TO MONITOR. PATIENT HAS EPISODES OF REFUSING LAB WORKS DONE, CONT TO ENCOURAGED.
[2018-08-14 07:41] VITALS: BP 95/47
[2018-08-14] MEDS: MULTIVITAMINS,THERAPEUTIC TABLET PO SCH (08:57)
[2018-08-14] MEDS: FERROUS SULFATE 325 MG TABEC PO SCH (08:57)
[2018-08-14] MEDS: OLANZAPINE 5 MG TABLET PO SCH (08:57)
[2018-08-14] MEDS: CALCIUM CARB/VITAMIN D 500MG-200UNITS TABLET PO SCH (08:57)
[2018-08-14] MEDS: DOCUSATE SODIUM 100 MG CAPSULE PO SCH ×2 (08:57→17:35)
[2018-08-14] MEDS: ONDANSETRON 4 MG/2 ML VIAL IV PRN (11:38)
[2018-08-14] MEDS ORDERED: BISACODYL 10 MG SUPP.RECT RC ONE (12:15)
[2018-08-14] MEDS ORDERED: POTASSIUM CHLORIDE 20 MEQ TAB.PRT.SR PO ONE (12:15)
[2018-08-14 15:09] VITALS: BP 95/53
[2018-08-14] MEDS: CEFTRIAXONE 1 G in IV DEXTROSE 5% 50 ML IV SCH (16:26)
[2018-08-14] MEDS ORDERED: NEUTRA PHOS PACKET PO ONE (16:45)
[2018-08-14] MEDS: OLANZAPINE ZYDIS 5 MG TAB.RAPDIS PO SCH (17:34)
--- NOTE | 2018-08-14 19:16 | NUR ---
Patient has been cooperative with care throughout shift. Patient had 3 episodes of emesis, and could not hold liquid or food down. Patient also reports pain in abdomen, legs and arms. Contacted provider for orders and CT scan was performed. Received orders for enema and cardenas catheter. Sitter currently at bedside.
[2018-08-14 19:21] VITALS: BP 97/58
[2018-08-14] MEDS ORDERED: FLEET ENEMA 133 ML BOTTLE RC ONE (20:00)
[2018-08-14] MEDS: ATORVASTATIN 20 MG TABLET PO SCH (20:24)
--- NOTE | 2018-08-14 20:29 | NUR ---
RECEIVED PATIENT IN BED AWAKE NO COMPLAIN OF PAIN, FLEET ENEMA GIVEN WITH LARGE PIECES OF FECES CAME OUT IN MODERATE AMOUNT, INSERTED MARSH CATH ORDERED WITH 500CC YELLOW COLOR URINE, TOLERATE WELL. CONT ON 1;1 SITTER FOR SAFETY. CONT TO MONITOR.
[2018-08-15] MEDS: TOBRAMYCIN 0.3% OPHT DROP 5 ML BOTTLE RIGHTEYE SCH ×7 (00:55→23:40)
[2018-08-15 05:56] LABS: BASOPHILS % (AUTO) 0.5 % (0.0-2.0); EOSINOPHILS # (AUTO) 0.1 K/uL (0.0-0.7); EOSINOPHILS % (AUTO) 1.9 % (0.0-7.0); HEMATOCRIT 28.2 % (31.2-41.9); HEMOGLOBIN 9.5 g/dL (10.9-14.3); LYMPHOCYTES # (AUTO) 1.2 K/uL (20.0-40.0); LYMPHOCYTES % (AUTO) 17.7 % (20.5-51.5); MEAN CORPUSCULAR HEMOGLOBIN 22.7 uug (24.7-32.8); MEAN CORPUSCULAR HGB CONC 34 g/dL (32.3-35.6); MEAN CORPUSCULAR VOLUME 67.6 fL (75.5-95.3); MONOCYTES # (AUTO) 0.5 K/uL (2.0-10.0); MONOCYTES % (AUTO) 7.8 % (0.0-11.0); NEUTROPHILS % (AUTO) 72.1 % (38.5-71.5); PLATELET COUNT (AUTO) 208 K/uL (179-408); RED BLOOD CELL COUNT(AUTO) 4.17 MIL/uL (3.63-4.92); WHITE BLOOD COUNT (AUTO) 6.9 K/uL (3.8-11.8)
[2018-08-15 05:57] VITALS: BP 93/56
[2018-08-15 06:07] LABS: CARBON DIOXIDE 24 mmol/L (21-32); CHLORIDE 112 mmol/L (98-107); CREATININE 0.7 mg/dL (0.6-1.3); GLUCOSE 106 mg/dL (74-106); MAGNESIUM 2.4 mg/dL (1.8-2.4); PHOSPHOROUS 2.1 mg/dL (2.5-4.9); POTASSIUM 3.9 mmol/L (3.5-5.1); UREA NITROGEN, BLOOD 12 mg/dL (7-18)
--- NOTE | 2018-08-15 06:37 | NUR ---
PATIENT SLEPT FOR 9 HOURS, NO SOB NO CHEST PAIN NOTED, HAD ANOTHER BM SMALL, MARSH CATH PATENT DRAINING WITH YELLOW COLOR URINE IN MODERATE AMOUNT. CONT ON 1;1 SITTER FOR SAFETY, COOPERATIVE WITH CARE AT THIS TIME. CONT TO MONITOR.
--- NOTE | 2018-08-15 07:15 | NUR ---
Received patient from parquet floor layer's helper. Patient in bed, awake, no distress noted. Bed in low position, side rails up x2. Bed alarm on, sitter at bedside.
[2018-08-15] MEDS: ONDANSETRON 4 MG/2 ML VIAL IV PRN (08:09)
[2018-08-15] MEDS: OLANZAPINE ZYDIS 5 MG TAB.RAPDIS PO SCH (08:49)
[2018-08-15] MEDS: FERROUS SULFATE 325 MG TABEC PO SCH (08:49)
[2018-08-15] MEDS: CALCIUM CARB/VITAMIN D 500MG-200UNITS TABLET PO SCH (08:49)
[2018-08-15] MEDS: MULTIVITAMINS,THERAPEUTIC TABLET PO SCH (08:49)
[2018-08-15] MEDS: DOCUSATE SODIUM 100 MG CAPSULE PO SCH ×2 (08:49→16:04)
[2018-08-15] MEDS ORDERED: MINERAL OIL FLEET ENEMA 133 ML BOTTLE RC ONE (09:45)
[2018-08-15] MEDS ORDERED: BISACODYL 10 MG SUPP.RECT RC ONE (09:45)
[2018-08-15] MEDS ORDERED: MAGNESIUM HYDROXIDE 30 ML LIQUID UDC PO PRN (10:00)
[2018-08-15 12:00] VITALS: BP 130/70
[2018-08-15] MEDS: IV NS 1000 ML 1,000 ML IV PRN (13:34)
[2018-08-15] MEDS: risperiDONE-M 0.5 MG TAB.RAPDIS PO SCH ×2 (13:36→16:04)
[2018-08-15] MEDS ORDERED: NEUTRA PHOS PACKET PO ONE (15:30)
[2018-08-15 16:00] VITALS: BP 105/61
[2018-08-15] MEDS: BENZTROPINE MESYLATE 0.5 MG TABLET PO SCH (16:04)
[2018-08-15] MEDS: CEFTRIAXONE 1 G in IV DEXTROSE 5% 50 ML IV SCH (16:05)
[2018-08-15 19:00] VITALS: BP 94/61
--- NOTE | 2018-08-15 19:04 | NUR ---
PATIENT HAS A 1:1 SITTER AT BEDSIDE. PATIENT IS GUARDED. TX GIVEN FOR CONSTIPATION; MEDICATION AND ENEMA. PATIENT HAS HAD BOWEL MOVEMENTS AFTER MEDICATION. BED IN LOW POSITION, WHEELS ARE LOCKED, CALL LIGHT WITHIN REACH.
--- NOTE | 2018-08-15 19:50 | NUR ---
Received pt sitting up, quiet but awake. Alert and oriented x3. 1:1 sitter at bedside for safety. Discussed and reviewed plan of care with pt, pt guarded but cooperative with treatment. Aware of 14 day hold. Antibiotic therapy noted. Pt has no complaints of pain, SOB or severe headache at this time. Safety precautions and comfort measures implemented. Will continue to monitor.
[2018-08-15] MEDS: ATORVASTATIN 20 MG TABLET PO SCH (20:00)
[2018-08-16 01:20] VITALS: BP 122/67
[2018-08-16] MEDS: ACETAMINOPHEN 325 MG TABLET PO PRN (01:24)
[2018-08-16] MEDS: TOBRAMYCIN 0.3% OPHT DROP 5 ML BOTTLE RIGHTEYE SCH ×3 (04:15→12:16)
[2018-08-16] MEDS: IV NS 1000 ML 1,000 ML IV PRN (04:36)
[2018-08-16 06:30] VITALS: BP 112/67
--- NOTE | 2018-08-16 06:53 | NUR ---
Pt slept 8 hours t/o shift. 1:1 sitter for safety. Pain med given x1 with effect. BMs noted on shift. Kept pt clean and dry. Continuous IVF running. Offered fluids during initial rounds. No complaints of pain at this time. Safety precautions maintained at all times. Call light within reach.
--- NOTE | 2018-08-16 07:35 | NUR ---
Received patient awake in bed not in any form of distress. Patient is alert and oriented x 3. On room air, tolerated. Noted with sitter at bedside. With ongoing IVF at right hand IV access, patent and intact. With cardenas catheter to urine bag, draining well. Bed in low position, side rails up x 2, call light within reach. Ensured patient safety and comfort. Will continue to monitor.
[2018-08-16] MEDS: DOCUSATE SODIUM 100 MG CAPSULE PO SCH (08:38)
[2018-08-16] MEDS: BENZTROPINE MESYLATE 0.5 MG TABLET PO SCH (08:38)
[2018-08-16] MEDS: CALCIUM CARB/VITAMIN D 500MG-200UNITS TABLET PO SCH (08:38)
[2018-08-16] MEDS: MULTIVITAMINS,THERAPEUTIC TABLET PO SCH (08:38)
[2018-08-16] MEDS: risperiDONE-M 0.5 MG TAB.RAPDIS PO SCH ×2 (08:38→12:16)
[2018-08-16] MEDS: FERROUS SULFATE 325 MG TABEC PO SCH (08:38)
[2018-08-16] MEDS ORDERED: BENZ0.5T43 PO (10:55)
[2018-08-16] MEDS ORDERED: risperiDONE-M PO (10:55)
[2018-08-16] MEDS ORDERED: CEFT1FRO2 IV (10:55)
[2018-08-16 10:57] VITALS: BP 105/60
--- NOTE | 2018-08-16 12:30 | NUR ---
Noted discharge order placed by Hazel De Oliveira NP. Lin catheter removed per Hazel. Will proceed to doing discharge papers. Patient's sister Johanne was notified of the discharge order.
[2018-08-16 12:36] LABS: CARBON DIOXIDE 25 mmol/L (21-32); CHLORIDE 108 mmol/L (98-107); CREATININE 0.7 mg/dL (0.6-1.3); GLUCOSE 123 mg/dL (74-106); PHOSPHOROUS 2.2 mg/dL (2.5-4.9); POTASSIUM 4.5 mmol/L (3.5-5.1); UREA NITROGEN, BLOOD 10 mg/dL (7-18)
[2018-08-16] MEDS: CEFTRIAXONE 1 G in IV DEXTROSE 5% 50 ML IV SCH (15:06)
[2018-08-16] MEDS ORDERED: NEUTRA PHOS PACKET PO ONE (15:15)
--- NOTE | 2018-08-16 15:59 | NUR ---
Patient discharged back to [facility]. Patient discharged via S ambulance accompanied by paramedics with all her belongings. Patient in stable condition and still with IV access at right hand, 22g to saline lock, intact. Report was given to SAMUEL Hammer of [facility]. Patient voided freely x 3 before discharge.
[2018-08-20] MEDS ORDERED: ALENDRONATE SODIUM 70 MG TABLET PO SCH (06:30)
== END 2018-08-16 16:02 | DRG 871 ==
LOC: TELE 14:58 → MED 08-14 12:10
PROVIDERS: ADMIT Nurse Practitioner Acute Care; ATTEND Nurse Practitioner Acute Care
DX: A41.9 Sepsis, unspecified organism (principal); G93.41 Metabolic encephalopathy; N39.0 Urinary tract infection, site not specified; M81.0 Age-related osteoporosis without current pathological fracture; E87.6 Hypokalemia; E78.5 Hyperlipidemia, unspecified; F50.9 Eating disorder, unspecified; Z91.19 Patient's noncompliance with other medical treatment and regimen; F01.50 Vascular dementia, unspecified severity, without behavioral disturbance, psychotic disturbance, mood disturbance, and anxiety; F20.9 Schizophrenia, unspecified; E11.9 Type 2 diabetes mellitus without complications; K44.9 Diaphragmatic hernia without obstruction or gangrene; I70.0 Atherosclerosis of aorta; H10.9 Unspecified conjunctivitis; K59.00 Constipation, unspecified; R65.20 Severe sepsis without septic shock
CPT/HCPCS: 36415; 74150; 83605; 83735; 84100; 85025; 92523; 92610; 97110; 97116; 97530; A4663; G0378; J0696; J2405; J7030; J7060

== ENCOUNTER 2021-08-29 15:22 | Inpatient (IN) | payer MEDICARE, OTHER ==
[~2021-08-29] VITALS: Ht 152.4 cm; Wt 47.2 kg
[~2021-08-29 15:22] MED LIST changes: +BENZ0.5T43 PO; +CEFT1FRO2 IV; +MULT-594 PO; -MULT1TAB73 PO; +risperiDONE-M PO
[2021-08-29] MEDS ORDERED: PANTOPRAZOLE SODIUM IV 80 MG in IV DEXTROSE 5% 100 ML IV ONE (16:00)
[2021-08-29] MEDS ORDERED: PANTOPRAZOLE SODIUM 40 MG VIAL ONE (16:05)
[2021-08-29 16:29] LABS: HEMATOCRIT 33.4 % (31.2-41.9); MEAN CORPUSCULAR HEMOGLOBIN 22.6 uug (24.7-32.8); MEAN CORPUSCULAR VOLUME 69.3 fL (75.5-95.3); PLATELET COUNT (AUTO) 392 K/uL (179-408)
[2021-08-29 16:35] LABS: CREATININE 1.3 mg/dL (0.6-1.3); POTASSIUM 4.2 mmol/L (3.5-5.1)
[2021-08-29 16:42] LABS: BILIRUBIN,DIRECT 0.1 mg/dL (0.0-0.2); BILIRUBIN,TOTAL 0.4 mg/dL (0.2-1.0); TOTAL PROTEIN, SERUM 6.7 g/dL (6.4-8.2)
[2021-08-29] MEDS ORDERED: ACET-2605 PO (16:51)
[2021-08-29] MEDS ORDERED: CALC1TAB30 PO (16:51)
[2021-08-29] MEDS ORDERED: LORA-258 PO (16:51)
[2021-08-29] MEDS ORDERED: MELA3TAB41 PO (16:51)
[2021-08-29] MEDS ORDERED: TEMA15CA PO (16:51)
[2021-08-29] MEDS ORDERED: IV NORMAL SALINE 250 ML IV ONE (16:58)
[2021-08-29] MEDS ORDERED: IOHEXOL 300MG/ML 100 ML INFUS..BTL ONE (16:58)
[2021-08-29] MEDS ORDERED: SWABABLE VALVE TRANSFER SET EA MC ONE (16:58)
[2021-08-29] MEDS ORDERED: IV NORMAL SALINE 100 ML BAG IV ONE (17:15)
--- NOTE | 2021-08-29 21:03 | NUR ---
ASSISTED PT TO RESTROOM, STEADY GAIT. DENIES ANY N/V/D. NO DIZZINESS/MCKEON.
[2021-08-29] MEDS ORDERED: ONDANSETRON 4 MG/2 ML VIAL IV PRN (21:30)
[2021-08-29] MEDS ORDERED: MORPHINE SULFATE 2 MG/1 ML DISP.SYRIN IV PRN (21:30)
--- NOTE | 2021-08-29 22:35 | NUR ---
Admission report received from ER nurse.
--- NOTE | 2021-08-29 22:49 | NUR ---
GAVE REPORT TO JESSA FALCON.
--- NOTE | 2021-08-29 23:05 | NUR ---
Patient arrived in the floor via gurney, awake, alert and oriented x 3. Not in apparent distress. Able to assist in bed transfer. Denies any pain at this time buy she claimed she's still feeling slight nausea. Oriented to room, call light, bed controls. Safety measures and fall prevention maintained. Routine admission care done. Plan of care initiated.
--- NOTE | 2021-08-29 23:06 | NUR ---
Pt. admitted to 3RD FLOOR , under care of Dr. HERNÁNDEZ Belongs List completed
[2021-08-29 23:35] VITALS: BP 108/64
[2021-08-30] MEDS: IV NS 1000 ML 1,000 ML IV PRN ×2 (00:35→13:38)
[2021-08-30 04:00] VITALS: BP 112/63
[2021-08-30 07:06] LABS: HEMATOCRIT 24.7 % (31.2-41.9); MEAN CORPUSCULAR VOLUME 69.8 fL (75.5-95.3); PLATELET COUNT (AUTO) 305 K/uL (179-408)
[2021-08-30 07:27] LABS: MAGNESIUM 2.6 mg/dL (1.8-2.4); PHOSPHOROUS 2.4 mg/dL (2.5-4.9); POTASSIUM 3.6 mmol/L (3.5-5.1)
[2021-08-30] MEDS: BENZTROPINE MESYLATE 0.5 MG TABLET PO SCH ×2 (08:24→16:37)
[2021-08-30] MEDS: PANTOPRAZOLE SODIUM 40 MG VIAL IV SCH ×2 (08:24→20:51)
[2021-08-30] MEDS: LORAZEPAM 0.5 MG TABLET PO SCH ×3 (08:24→16:37)
[2021-08-30] MEDS: risperiDONE-M 0.5 MG TAB.RAPDIS PO SCH ×3 (08:24→16:37)
--- NOTE | 2021-08-30 10:30 | NUR ---
Dr Kramer order NPO except meds. Patient made aware. Will continue to monitor.
--- NOTE | 2021-08-30 11:45 | NUR ---
consent for endoscopy obtained and signed. will keep patient on NPO as ordered.
[2021-08-30 12:19] VITALS: BP 108/68
[2021-08-30 15:56] VITALS: BP 95/51
[2021-08-30] MEDS ORDERED: NEUTRA PHOS PACKET PO ONE (16:15)
--- NOTE | 2021-08-30 17:00 | NUR ---
patient left for OR via hospital bed. Report given to Cynthia GERMAIN.
[2021-08-30 17:01] LABS: HEMATOCRIT 25.9 % (31.2-41.9)
[2021-08-30] MEDS ORDERED: EPINEPHRINE 1 MG/1 ML AMP ONE (17:05)
[2021-08-30] MEDS ORDERED: NORMAL SALINE 10 ML VIAL ONE (17:06)
[2021-08-30] MEDS ORDERED: ONDANSETRON 4 MG/2 ML VIAL IV ONE (18:22)
[2021-08-30] MEDS ORDERED: PROPOFOL 200 MG/20 ML BOTTLE IV ONE (18:22)
[2021-08-30] MEDS ORDERED: LIDOCAINE-MPF 2% 5 ML VIAL IJ ONE (18:22)
[2021-08-30] MEDS ORDERED: METOCLOPRAMIDE HCL 10 MG/2 ML VIAL IV ONE (18:22)
[2021-08-30] MEDS ORDERED: ETOMIDATE 20 MG/10 ML VIAL IV ONE (18:22)
[2021-08-30] MEDS ORDERED: SUCCINYLCHOLINE CHLORIDE 200 MG/10 ML VIAL IV ONE (18:22)
--- NOTE | 2021-08-30 18:45 | NUR ---
patient is still in OR. will endorse to the next shift for continuity of care.
--- NOTE | 2021-08-30 19:15 | NUR ---
Patient back from OR alert and able to make needs known .No acute distress noted. On RA saturating 95 %.Continue on IVF infusing well at 75 ml/hr. Tolerated well.Iv patent and intact onleft AC 20 g.Call light with in reach . Will continue to monitor.
[2021-08-30 20:00] VITALS: BP 112/61
[2021-08-30] MEDS: SUCRALFATE 1 G/10 ML LIQUID UDC GT SCH (20:51)
[2021-08-31 04:00] VITALS: BP 97/52
[2021-08-31] MEDS: IV NS 1000 ML 1,000 ML IV PRN (05:59)
[2021-08-31] MEDS: PANTOPRAZOLE SODIUM 40 MG VIAL IV SCH ×2 (08:25→21:06)
[2021-08-31] MEDS: SUCRALFATE 1 G/10 ML LIQUID UDC GT SCH ×4 (08:25→21:06)
[2021-08-31] MEDS: BENZTROPINE MESYLATE 0.5 MG TABLET PO SCH ×2 (08:25→16:06)
[2021-08-31] MEDS: risperiDONE-M 0.5 MG TAB.RAPDIS PO SCH ×3 (08:26→16:06)
[2021-08-31] MEDS: LORAZEPAM 0.5 MG TABLET PO SCH ×3 (08:26→16:06)
[2021-08-31 08:47] LABS: HEMATOCRIT 23.3 % (31.2-41.9)
[2021-08-31] MEDS ORDERED: BISACODYL 10 MG SUPP.RECT RC ONE (11:00)
[2021-08-31 12:47] VITALS: BP 97/62
[2021-08-31 14:10] LABS: BILIRUBIN,DIRECT 0.1 mg/dL (0.0-0.2); BILIRUBIN,TOTAL 0.3 mg/dL (0.2-1.0); TOTAL PROTEIN, SERUM 5.4 g/dL (6.4-8.2)
[2021-08-31 16:35] VITALS: BP 116/64
[2021-08-31] MEDS ORDERED: SODIUM PHOSPHATE MM 15 MMOL in IV NORMAL SALINE 250 ML IV ONE (17:00)
[2021-08-31 20:00] VITALS: BP 94/46
[2021-08-31 21:30] VITALS: BP 100/51
[2021-09-01] MEDS: IV NS 1000 ML 1,000 ML IV PRN (02:58)
[2021-09-01 04:00] VITALS: BP 103/55
[2021-09-01] MEDS: SUCRALFATE 1 G/10 ML LIQUID UDC GT SCH ×2 (06:37→11:55)
--- NOTE | 2021-09-01 06:43 | NUR ---
Patient awake alert x3 .Denies pain .No acute distress noted through out the shift.Compliant with medication .BM x1.IV patent and intact on right hand with IVF infusing well.All needs anticipated and met accordingly.Will endorse to oncoming shift.
[2021-09-01 08:35] LABS: HEMATOCRIT 22.4 % (31.2-41.9); MEAN CORPUSCULAR HEMOGLOBIN 23.1 uug (24.7-32.8); MEAN CORPUSCULAR VOLUME 70.2 fL (75.5-95.3); PLATELET COUNT (AUTO) 272 K/uL (179-408)
[2021-09-01 09:03] LABS: CREATININE 0.7 mg/dL (0.6-1.3); MAGNESIUM 2.3 mg/dL (1.8-2.4); PHOSPHOROUS 1.8 mg/dL (2.5-4.9); POTASSIUM 3.2 mmol/L (3.5-5.1)
[2021-09-01 09:06] LABS: HEMATOCRIT 22.7 % (31.2-41.9); MEAN CORPUSCULAR HEMOGLOBIN 23.5 uug (24.7-32.8); MEAN CORPUSCULAR VOLUME 70.6 fL (75.5-95.3); PLATELET COUNT (AUTO) 281 K/uL (179-408)
[2021-09-01] MEDS: risperiDONE-M 0.5 MG TAB.RAPDIS PO SCH ×2 (09:42→13:05)
[2021-09-01] MEDS: LORAZEPAM 0.5 MG TABLET PO SCH ×2 (09:42→13:05)
[2021-09-01] MEDS: BENZTROPINE MESYLATE 0.5 MG TABLET PO SCH (09:42)
[2021-09-01] MEDS: PANTOPRAZOLE SODIUM 40 MG VIAL IV SCH (09:42)
[2021-09-01 10:36] LABS: LYMPHOCYTES % (MANUAL) 6 % (20-40); MONOCYTES % (MANUAL) 3 % (2-10); NEUTROPHILS % (MANUAL) 91 % (42-75)
[2021-09-01 11:00] VITALS: BP 105/64
[2021-09-01] MEDS ORDERED: POTASSIUM CHLORIDE 20 MEQ TAB.PRT.SR PO ONE (11:30)
[2021-09-01] MEDS ORDERED: POTASSIUM CHLORIDE 20 MEQ POWDER PACKET PO ONE ×2 (12:00→14:00)
[2021-09-01 12:14] LABS: BAND % (MANUAL) 1 % (0-10); LYMPHOCYTES % (MANUAL) 8 % (20-40); MONOCYTES % (MANUAL) 5 % (2-10); NEUTROPHILS % (MANUAL) 86 % (42-75)
[2021-09-01] MEDS ORDERED: LOPERAMIDE HCL 2 MG CAPSULE PO PRN (13:15)
[2021-09-01] MEDS ORDERED: LOPERAMIDE HCL 2 MG CAPSULE PO ONE (13:15)
[2021-09-01 14:58] VITALS: BP 100/58
[2021-09-01] MEDS ORDERED: NEUTRA PHOS PACKET PO ONE (15:30)
--- NOTE | 2021-09-01 18:10 | NUR ---
Discharged patient to [facility]. AOx3. On room air. No signs of acute distress. Patient denies pain/ discomfort. Discharge instructions given and patient signed discharge documents. Belongings accounted for and belongings list signed. IV access removed. ID armband removed. Patient left hospital via ambulance gurney. Nursing report given to RN at [facility].
== END 2021-09-01 17:55 | DRG 368 ==
LOC: ER 15:22 → TELE3 22:46 → MEDSURG3 08-30 00:02
PROVIDERS: ATTEND Internal Medicine
PROC: 0DB68ZX Excision of Stomach, Via Natural or Artificial Opening Endoscopic, Diagnostic (ICD-10-PCS; principal; 2021-08-30)
DX: K20.91 Esophagitis, unspecified with bleeding (principal); K29.71 Gastritis, unspecified, with bleeding; D62 Acute posthemorrhagic anemia; E87.2 Acidosis; N17.9 Acute kidney failure, unspecified; E78.5 Hyperlipidemia, unspecified; E87.6 Hypokalemia; F03.90 Unspecified dementia, unspecified severity, without behavioral disturbance, psychotic disturbance, mood disturbance, and anxiety; F32.9 Major depressive disorder, single episode, unspecified; Z20.822 Contact with and (suspected) exposure to COVID-19; F41.9 Anxiety disorder, unspecified; F25.9 Schizoaffective disorder, unspecified; K44.9 Diaphragmatic hernia without obstruction or gangrene; M81.0 Age-related osteoporosis without current pathological fracture; F10.20 Alcohol dependence, uncomplicated
CPT/HCPCS: 36415; 70030-TC; 71045; 83605; 83690; 83735; 84100; 85018; 85025; 85730; 86850; 86900; 86901; 87040; 88313-TC; 88342; 93005; A4663; C9113; G0378; J0171; J0330; J2405; J2765; J3490; J7030; J7040; J7050; Q9967